=== PATIENT | female | born 2000 | race Asian ===

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

== ENCOUNTER 2022-10-17 20:40 | Emergency (ER) | payer BC, MEDICAID ==
[~2022-10-17] VITALS: Ht 162.6 cm; Wt 90.9 kg
[~2022-10-17 20:40] MED LIST changes: +CLIN300C54 PO
[2022-10-17 21:01] VITALS: BP 142/92
== END 2022-10-18 03:12 | disposition home or self-care (01) ==
LOC: ER 20:41
DX: T17.298A Other foreign object in pharynx causing other injury, initial encounter (principal); J45.909 Unspecified asthma, uncomplicated; Z79.1 Long term (current) use of non-steroidal anti-inflammatories (NSAID); Z79.899 Other long term (current) drug therapy; X58.XXXA Exposure to other specified factors, initial encounter; Y93.89 Activity, other specified; Y92.89 Other specified places as the place of occurrence of the external cause; Y99.8 Other external cause status
CPT/HCPCS: 99284